=== PATIENT | male | born 1930 | race Caucasian/White ===

== ENCOUNTER 2018-12-01 10:32 | Day surgery (SDC) | payer MEDICARE, OTHER ==
[2018-12-01] MEDS ORDERED: Ketamine HCl 50 MG/ML IV ONE (10:33)
[2018-12-01] MEDS ORDERED: DIPRIVAN 200 MG/20 ML IV ONE (10:33)
[2018-12-01] MEDS ORDERED: Xylocaine 1% Vial 30 ML PF IJ ONE (10:33)
[2018-12-01] MEDS ORDERED: Sodium Chloride 0.9(Preservative Free) 10 ML IJ ONE (10:33)
[2018-12-01] MEDS ORDERED: Depo-Medrol 40 MG/ML IM ONE (10:33)
[2018-12-01] MEDS ORDERED: Lactated Ringers 1,000 ML IV ONE (14:23)
--- NOTE | 2018-12-01 16:27 | XRAY ---
16 seconds fluoroscopy time in surgery for bilateral L5-S1 GUDELIA.
--- NOTE | 2018-12-02 05:01 | XRAY ---
Indication: Bilateral L5-S1 GUDELIA. Intraoperative fluoroscopy was provided for extending seconds. 2 digital spot images submitted for interpretation demonstrated posterior spinal needle projected over the L5-S1 level just to the left of midline. A small amount of contrast has been injected for needle tip placement. Correlate with intraoperative findings/report.
== END 2018-12-01 12:18 | disposition home or self-care (01) ==
LOC: SDC-PAIN 10:32
PROVIDERS: ATTEND Psychiatry & Neurology Pain Medicine
DX: M54.16 Radiculopathy, lumbar region (principal); I10 Essential (primary) hypertension
CPT/HCPCS: 62323; 72100; 77003; J1030; J2001; J2704; Q9966

== ENCOUNTER 2019-03-02 10:37 | Day surgery (SDC) | payer MEDICARE, OTHER ==
[2019-03-02] MEDS ORDERED: Depo-Medrol 40 MG/ML IM ONE (10:38)
[2019-03-02] MEDS ORDERED: Xylocaine-Mpf 2% 5 Ml Vial IJ ONE (10:38)
[2019-03-02] MEDS ORDERED: DIPRIVAN 200 MG/20 ML IV ONE (12:10)
[2019-03-02] MEDS ORDERED: Ketamine HCl 50 MG/ML ONE (12:10)
--- NOTE | 2019-03-02 13:44 | XRAY ---
Indication: Bilateral L4-S1 MBB. Intraoperative fluoroscopy was provided for 6 seconds. Single digital spot image submitted for interpretation demonstrates posterior needle tips projecting over the expected course of the left and right L4-S1 nerve roots. Correlate with intraoperative findings/report.
--- NOTE | 2019-03-02 13:46 | XRAY ---
6 seconds of fluoroscopy was used in surgery for a bilateral L4-L5 and L5-S1 MBB.
[2019-03-02] MEDS ORDERED: Lactated Ringers 1,000 ML IV ONE (14:20)
== END 2019-03-02 12:40 | disposition home or self-care (01) ==
LOC: SDC-PAIN 10:37
PROVIDERS: ATTEND Psychiatry & Neurology Pain Medicine
DX: M47.816 Spondylosis without myelopathy or radiculopathy, lumbar region (principal); I10 Essential (primary) hypertension; Z79.899 Other long term (current) drug therapy
CPT/HCPCS: 64493; 64494; 72020; 77002; J1030; J2704

== ENCOUNTER 2019-03-30 10:05 | Day surgery (SDC) | payer MEDICARE, OTHER ==
[2019-03-30] MEDS ORDERED: Depo-Medrol 40 MG/ML IM ONE (10:06)
[2019-03-30] MEDS ORDERED: Marcaine 0.5% SDV 10 ML IJ ONE (10:06)
--- NOTE | 2019-03-30 12:11 | XRAY ---
Indication: Bilateral L4-S1 MBB. Intraoperative fluoroscopy was provided for 7 seconds. Single digital spot image submitted for interpretation demonstrates posterior needle tips projecting over the expected course of the left and right L4-S1 nerve roots. Correlate with intraoperative findings/report.
--- NOTE | 2019-03-30 12:44 | XRAY ---
7 seconds fluoroscopy time in surgery for bilateral L4-S1 MBB.
[2019-03-30] MEDS ORDERED: Lactated Ringers 1,000 ML IV ONE (13:59)
== END 2019-03-30 11:16 | disposition home or self-care (01) ==
LOC: SDC-PAIN 10:05
PROVIDERS: ATTEND Psychiatry & Neurology Pain Medicine
DX: M47.816 Spondylosis without myelopathy or radiculopathy, lumbar region (principal); I10 Essential (primary) hypertension; Z79.899 Other long term (current) drug therapy
CPT/HCPCS: 64493; 64494; 72020; 77002; J1030

== ENCOUNTER 2019-04-20 09:38 | Day surgery (SDC) | payer MEDICARE, OTHER ==
[2019-04-20] MEDS ORDERED: Depo-Medrol 40 MG/ML IM ONE (09:39)
[2019-04-20] MEDS ORDERED: Xylocaine 1% Vial 30 ML PF IJ ONE (09:39)
[2019-04-20] MEDS ORDERED: Marcaine 0.5% SDV 10 ML IJ ONE (09:39)
[2019-04-20] MEDS ORDERED: Ketamine HCl 50 MG/ML ONE (11:06)
[2019-04-20] MEDS ORDERED: DIPRIVAN 200 MG/20 ML IV ONE (11:06)
--- NOTE | 2019-04-20 12:16 | XRAY ---
Indication: Left L4-S1 RFA. Intraoperative fluoroscopy was provided for 19 seconds. 4 digital spot images submitted for interpretation demonstrates posterior needle tips projecting over the expected left L4-S1 nerve roots. Correlate with intraoperative findings/report.
--- NOTE | 2019-04-20 12:18 | XRAY ---
19 seconds fluoroscopy time in surgery for left L4-S1 RFA.
[2019-04-20] MEDS ORDERED: Lactated Ringers 1,000 ML IV ONE (12:49)
== END 2019-04-20 11:43 | disposition home or self-care (01) ==
LOC: SDC-PAIN 09:38
PROVIDERS: ATTEND Psychiatry & Neurology Pain Medicine
DX: M47.816 Spondylosis without myelopathy or radiculopathy, lumbar region (principal); I10 Essential (primary) hypertension; Z79.899 Other long term (current) drug therapy
CPT/HCPCS: 64635; 64636; 72100; 77002; 99100; J1030; J2001; J2704

== ENCOUNTER 2019-05-25 09:14 | Day surgery (SDC) | payer MEDICARE, OTHER ==
[2019-05-25] MEDS ORDERED: Depo-Medrol 40 MG/ML IM ONE (09:15)
[2019-05-25] MEDS ORDERED: Marcaine 0.5% SDV 10 ML IJ ONE (09:15)
[2019-05-25] MEDS ORDERED: Xylocaine 1% Vial 30 ML PF IJ ONE (09:15)
[2019-05-25] MEDS ORDERED: Ketamine HCl 50 MG/ML ONE (10:57)
[2019-05-25] MEDS ORDERED: DIPRIVAN 200 MG/20 ML IV ONE (10:57)
--- NOTE | 2019-05-25 12:47 | XRAY ---
Indication: Right L4-S1 RFA. Intraoperative fluoroscopy was provided for 21 seconds. 4 digital spot images submitted for interpretation demonstrates posterior needle tips projecting over the expected course of the right L4-S1 nerve roots. Correlate with intraoperative findings/report.
--- NOTE | 2019-05-25 13:01 | XRAY ---
21 seconds fluoroscopy time in surgery for right L4-S1 RFA.
[2019-05-25] MEDS ORDERED: Lactated Ringers 1,000 ML IV ONE (18:20)
== END 2019-05-25 11:36 | disposition home or self-care (01) ==
LOC: SDC-PAIN 09:14
PROVIDERS: ATTEND Psychiatry & Neurology Pain Medicine
DX: M47.816 Spondylosis without myelopathy or radiculopathy, lumbar region (principal); I10 Essential (primary) hypertension; Z79.899 Other long term (current) drug therapy
CPT/HCPCS: 64635; 64636; 72100; 77002; 99100; J1030; J2001; J2704